=== PATIENT | male | born 1955 | race Caucasian/White ===

== ENCOUNTER 2016-10-05 12:38 | Emergency (ER) | payer MEDICARE, MEDICAID ==
--- NOTE | 2016-10-05 13:52 | EDM.PDOC ---
ED HPI NEURO - General Chief Complaint: Neuro Symptoms/Deficits Stated Complaint: DIZZY/SHOULDER PAIN Time Seen by Provider: 10/05/16 12:57 Source of Information: Reports: RN notes reviewed, Other ([facility] nurse) - History of Present Illness INITIAL COMMENTS - FREE TEXT/NARRATIVE: 60 year old male brought here with concern of paresthesias L hand earlier today and also question of some mild chest discomfort. Nurse states that he also has had some nasal benny. today, very occasional cough. He has had no focal weakness. communication ablitity is extremely limited. Does not appear to be in any distress at time of my exam. No cardiac or neuro hx. - Related Data Allergies/ADRs: Allergies Allergy/AdvReac Type Severity Reaction Status Date / Time cyclobenzaprine Allergy Other Verified 09/11/14 22:49 Home Meds: Home Meds Acetaminophen [Mapap] 650 mg PO TID 09/11/14 [History] Aspirin [Halfprin] 81 mg PO DAILY 09/11/14 [History] Benztropine [Cogentin] 0.5 mg PO QPM 09/11/14 [History] Doxazosin [Cardura] 8 mg PO DAILY 09/11/14 [History] Doxycycline Hyclate 20 mg PO DAILY 09/11/14 [History] LORazepam 0.5 mg PO QAM 09/11/14 [History] LORazepam 0.5 mg PO QPM 09/11/14 [History] Metoprolol Tartrate 25 mg PO BID 09/11/14 [History] Omeprazole 40 mg PO DAILY 09/11/14 [History] Ranitidine [Zantac] 150 mg PO QPM 09/11/14 [History] Vortioxetine Hydrobromide [Trintellix] 10 mg PO DAILY 09/11/14 [History] atorvaSTATin [Lipitor] 10 mg PO DAILY 09/11/14 [History] risperiDONE [Risperdal M-Tab] 0.5 mg PO QPM 09/11/14 [History] Mineral Oil/Petrolatum Oint [Lacri-Lube S.O.P Oint] 1 dose EYEBOTH DAILY [History] Polyvinyl Alcohol/Povidone/Pf [Refresh Classic Eye Drops] 1 drop EYEBOTH QID [History] Sennosides/Docusate Sodium [Senna Laxative Tablet] 2 tab PO DAILY PRN 10/05/16 [ History] Past Medical History HEENT History: Reports: Impaired vision, Other (see below) Other HEENT History: Glasses and dentures Cardiovascular History: Reports: High cholesterol, Hypertension Gastrointestinal History: Reports: GERD, Other (see below) Other Gastrointestinal History: "probability of lactose intolerance" Musculoskeletal History: Reports: Arthritis Neurological History: Reports: Cerebral palsy, Seizure, Other (see below) Other Neuro History: Patient is dx (from ) with moderate mental retardation Psychiatric History: Reports: Anxiety, Depression Social & Family History - Tobacco Use Smoking Status *Q: Never Smoker Second Hand Smoke Exposure: No - Caffeine Use Caffeine Use: Reports: None - Alcohol Use Days Per Week of Alcohol Use: 0 - Recreational Drug Use Recreational Drug Use: No - Living Situation & Occupation Living situation: Reports: assisted living ([facility] ED ROS GENERAL - Review of Systems Review Of Systems: See Below Constitutional: Reports: other (has felt dizzy today). Denies: fever, chills HEENT: Reports: Rhinitis. Denies: Throat pain, Throat swelling Respiratory: Reports: Cough (occasional). Denies: Shortness of Breath, Wheezing , Pleuritic Chest Pain Cardiovascular: Reports: Chest pain (mild, gone), Lightheadedness (today) GI/Abdominal: Denies: Abdominal pain, Diarrhea, Nausea, Vomiting Musculoskeletal: Denies: shoulder pain, arm pain Skin: Reports: no symptoms Neurological: Reports: Numbness (L hand, now gone) ED EXAM, NEURO - Physical Exam Exam: See Below General Appearance: alert, no apparent distress Eye Exam: bilateral eye: PERRL Throat/Mouth: Normal inspection, Normal oropharynx, Other (no facial drrop) Head Exam: atraumatic. No: facial swelling Neck: supple. No: lymphadenopathy (L), lymphadenopathy (R) Respiratory/Chest: no respiratory distress, lungs clear, normal breath sounds, no accessory muscle use Cardiovascular: regular rate, rhythm GI/Abdominal: soft, non tender Neurological: alert, no motor/sensory deficits, other (speech very limited, does answer yes and no questions, good upper and lower extrem strength, finger to nose also normal at this time. ) Extremities: normal inspection, normal range of motion Skin Exam: Warm, Dry, Normal color EKG INTERPRETATION EKG Date: 10/05/16 Rhythm: NSR Ross: normal P-wave: present QRS: normal ST-T: normal Course - Vital Signs Last Recorded V/S: Last Vital Signs Temp 98.4 F 10/05/16 12:48 Pulse 82 10/05/16 12:48 Resp 10 L 10/05/16 12:48 BP 102/67 10/05/16 12:48 Pulse Ox 95 10/05/16 12:48 - Orders/Labs/Meds Orders: Active Orders 24 hr Category Date Time Status EKG 12 Lead [EKG Documentation Completion] [RC] STAT Care 10/05/16 13:16 Active CBC WITH AUTO DIFF [HEME] Stat Lab 10/05/16 14:12 Results Labs: Laboratory Tests 10/05/16 10/05/16 Range/Units 14:12 14:12 WBC 9.75 H (4.23-9.07) K/mm3 RBC 4.96 (4.63-6.08) M/mm3 Hgb 14.4 (13.7-17.5) gm/L Hct 41.8 (40.1-51.0) % MCV 84.3 (79.0-92.2) fl MCH 29.0 (25.7-32.2) pg MCHC 34.4 (32.2-35.5) g/dl RDW Std Deviation 37.8 (35.1-43.9) fL Plt Count 202 (163-337) K/mm3 MPV 9.1 L (9.4-12.3) fl Neut % (Auto) 80.9 H (34.0-67.9) % Lymph % (Auto) 9.7 L (21.8-53.1) % Elliott % (Auto) 7.9 (5.3-12.2) % Eos % (Auto) 1.2 (0.8-7.0) Baso % (Auto) 0.1 (0.1-1.2) % Neut # (Auto) 7.88 H (1.78-5.38) K/mm3 Lymph # (Auto) 0.95 L (1.32-3.57) K/mm3 Elliott # (Auto) 0.77 (0.30-0.82) K/mm3 Eos # (Auto) 0.12 (0.04-0.54) K/mm3 Baso # (Auto) 0.01 (0.01-0.08) K/mm3 Sodium 141 (136-145) mEq/L Potassium 3.8 (3.5-5.1) mEq/L Chloride 105 (98-107) mEq/L Carbon Dioxide 27 (21-32) mEq/L Anion Gap 12.8 (5-15) BUN 17 (7-18) mg/dL Creatinine 1.2 (0.7-1.3) mg/dL Est Cr Clr Drug Dosing 63.59 mL/min Estimated GFR (MDRD) > 60 (>60) mL/min BUN/Creatinine Ratio 14.2 (14-18) Glucose 134 H (80-115) mg/dL Calcium 8.7 (8.5-10.1) mg/dL Total Bilirubin 0.5 (0.2-1.0) mg/dL AST 15 (15-37) U/L ALT 30 (16-63) U/L Alkaline Phosphatase 64 (46-116) U/L Troponin I < 0.017 (0.00-0.056) ng/mL Total Protein 6.6 (6.4-8.2) g/dl Albumin 3.9 (3.4-5.0) g/dl Globulin 2.7 gm/dL Albumin/Globulin Ratio 1.4 (1-2) - Re-Assessments/Exams Free Text/Narrative Re-Assessment/Exam: 10/05/16 14:50 trop., other labs have come back normal, EKG was normal, continues to have no neuro deficit while here in the ED, he is coming down with a URI, discharge instr. as documented. Departure - Departure Time of Disposition: 14:52 Disposition: Home, Self-Care 01 Condition: fair Clinical Impression: Upper respiratory infection Qualifiers: URI type: unspecified viral URI Qualified Code(s): J06.9 - Acute upper respiratory infection, unspecified; B97.89 - Other viral agents as the cause of diseases classified elsewhere Forms: ED Department Discharge Additional Instructions: encourage fluids, tylenol if needed for pain or fever, follow up clinic as needed, return to ED as needed. - My Orders Last 24 Hours: My Active Orders 10/05/16 13:16 EKG 12 Lead [EKG Documentation Completion] [RC] STAT 10/05/16 14:12 CBC WITH AUTO DIFF [HEME] Stat - Assessment/Plan Last 24 Hours: My Active Orders 10/05/16 13:16 EKG 12 Lead [EKG Documentation Completion] [RC] STAT 10/05/16 14:12 CBC WITH AUTO DIFF [HEME] Stat
[2016-10-05 15:20] VITALS: BP 106/70
== END 2016-10-05 15:05 | disposition home or self-care (01) ==
LOC: JD.ED 12:38
DX: J06.9 Acute upper respiratory infection, unspecified (principal); I10 Essential (primary) hypertension; E78.00 Pure hypercholesterolemia, unspecified; K21.9 Gastro-esophageal reflux disease without esophagitis; M19.90 Unspecified osteoarthritis, unspecified site; F41.8 Other specified anxiety disorders; Z79.899 Other long term (current) drug therapy; Z79.82 Long term (current) use of aspirin; Z88.8 Allergy status to other drugs, medicaments and biological substances
CPT/HCPCS: 36415; 80053; 84484; 85025; 87804; 93005; 99283; 99284-25

== ENCOUNTER 2021-03-07 12:20 | Day surgery (SDC) | payer MEDICARE, MEDICAID ==
[~2021-03-07 12:20] MED LIST: Lidocaine 1% PF 2 ML SDV INJECT SCH
[2021-03-07] MEDS: Polymyxin B/Trimethoprim 10 ML Bottle EYELF SCH ×4 (13:44→14:52)
[2021-03-07] MEDS: Brimonidine 0.2% Ophth Soln 5 ML Bottle EYELF SCH ×4 (13:47→14:52)
--- NOTE | 2021-03-07 13:48 | PCM.PREANE ---
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) Other: Reports: Depression, Anxiety - Physical Assessment NPO Status Date: 03/06/21 NPO Status Time: 20:00 Weight: 71.668 kg ASA Class: 3 Mental Status: Alert & Oriented x3 Airway Class: Mallampati = 2 Dentition: Reports: Normal Dentition Thyro-Mental Finger Breadths: 3 Mouth Opening Finger Breadths: 2 ROM/Head Extension: Full Lungs: Clear to Auscultation, Normal Respiratory Effort Cardiovascular: Regular Rate, Regular Rhythm - Allergies Allergies/Adverse Reactions: Allergies Allergy/AdvReac Type Severity Reaction Status Date / Time adhesive Allergy Other Verified 03/06/21 12:22 cyclobenzaprine Allergy Other Verified 03/06/21 12:22 - Blood Blood Available: No Product(s) Available: None - Anesthesia Plan Pre-Op Medication Ordered: None - Acknowledgements Anesthesia Type Planned: MAC Pt an Appropriate Candidate for the Planned Anesthesia: Yes Alternatives and Risks of Anesthesia Discussed w Pt/Guardian: Yes Additional Comments: phone consent for anesthesia obtained from guardian Kim PreAnesthesia Questionnaire HEENT History: Reports: Impaired Vision, Other (See Below) Other HEENT History: Glasses and dentures Cardiovascular History: Reports: High Cholesterol, Hypertension Gastrointestinal History: Reports: GERD, Other (See Below) Other Gastrointestinal History: "probability of lactose intolerance" Musculoskeletal History: Reports: Arthritis Neurological History: Reports: Cerebral Palsy, Seizure, Other (See Below) Other Neuro History: Patient is dx (from ) with moderate mental retardation Psychiatric History: Reports: Anxiety, Depression - HOME MEDS Home Medications: Home Meds Acetaminophen [Mapap] 650 mg PO TID 09/11/14 [History] Aspirin [Halfprin] 81 mg PO DAILY 09/11/14 [History] Benztropine [Cogentin] 0.5 mg PO QPM 09/11/14 [History] Doxazosin [Cardura] 8 mg PO DAILY 09/11/14 [History] Doxycycline Hyclate 20 mg PO DAILY 09/11/14 [History] LORazepam 0.5 mg PO QAM 09/11/14 [History] LORazepam 0.5 mg PO QPM 09/11/14 [History] Omeprazole 40 mg PO DAILY 09/11/14 [History] Vortioxetine [Trintellix] 10 mg PO DAILY 09/11/14 [History] atorvaSTATin [Lipitor] 10 mg PO DAILY 09/11/14 [History] risperiDONE [Risperdal M-Tab] 0.25 mg PO QPM 09/11/14 [History] Mineral Oil/Petrolatum Oint [Lacri-Lube S.O.P Oint] 1 dose EYEBOTH DAILY 10/05/16 [History] Polyvinyl Alcohol/Povidone/Pf [Refresh Classic Eye Drops] 1 drop EYEBOTH QID 0 10/05/16 [History] Sennosides/Docusate Sodium [Senna Laxative Tablet] 2 tab PO DAILY PRN 10/05/16 [History] Fluticasone Propionate [Flovent] 50 mcg NASBOTH DAILY 03/06/21 [History] Hypromellose [Systane Gel] 10 gm EYEBOTH DAILY 03/06/21 [History] Ibuprofen 200 mg .ROUTE ASDIRECTED PRN 03/06/21 [History] Lactobacillus Acidophilus [Acidophilus Probiotic] 1 cap PO DAILY 03/06/21 [History] Memantine HCl 5 mg PO DAILY 03/06/21 [History] Pantoprazole [ProTONIX] 40 mg PO DAILY 03/06/21 [History] buPROPion HCL [Bupropion Xl] 150 mg PO DAILY 03/06/21 [History] risperiDONE [Risperdal] 0.5 mg PO DAILY 03/06/21 [History] risperiDONE [Risperidone] 0.25 mg PO DAILY 03/06/21 [History] - CURRENT (IN HOUSE) MEDS Current Meds: Current Medications Brimonidine Tartrate (Brimonidine 0.2% Ophth Soln 5 Ml Bottle) 0 ml EYELF ASDIRECTED STEVE Stop: 03/07/21 18:00 Cefuroxime Sodium (Cefuroxime 10 Mg/Ml Syringe) 0 mg EYELF ASDIRECTED STEVE Stop: 03/07/21 18:00 Lidocaine HCl (Lidocaine 1% Pf 2 Ml Sdv) 0 ml INJECT ASDIRECTED STEVE Stop: 03/07/21 18:00 Phenylephrine HCl (Phenylephrine 2.5% Ophth Soln 2 Ml Bot) 0 ml EYELF ASDIRECTED STEVE Stop: 03/07/21 18:00 Pilocarpine HCl (Pilocarpine 4% Ophth Soln 15 Ml Bot) 0 ml EYELF ASDIRECTED STEVE Stop: 03/07/21 18:00 Polymyxin/Trimethoprim Sulfate (Polymyxin B/Trimethoprim 10 Ml Bottle) 0 ml E YELF ASDIRECTED STEVE Stop: 03/07/21 18:00 Last Admin: 03/07/21 13:44 Dose: 1 drop Documented by: Tetracaine HCl (Tetracaine Hcl/Pf 0.5% 4 Ml Bottle) 0 ml EYEBOTH ASDIRECTED STEVE Stop: 03/07/21 18:00 Tropicamide (Tropicamide 1% Ophth Soln 15 Ml Bottle) 0 ml EYELF ASDIRECTED STEVE Stop: 03/07/21 18:00
[2021-03-07] MEDS: Phenylephrine 2.5% Ophth Soln 2 ML Bot EYELF SCH ×5 (13:50→14:25)
[2021-03-07] MEDS: Tropicamide 1% Ophth Soln 15 ML Bottle EYELF SCH ×4 (13:52→14:09)
[2021-03-07] MEDS ORDERED: Midazolam 1 MG/ML 2 ML SDV ONE (14:11)
[2021-03-07] MEDS: Tetracaine HCl/PF 0.5% 4 ML Bottle EYEBOTH SCH ×4 (14:11→14:30)
[2021-03-07] MEDS ORDERED: Propofol 200 MG/20 ML SDV ONE (14:22)
[2021-03-07] MEDS: Cefuroxime 10 MG/ML SYRINGE EYELF SCH ×2 (14:30→14:52)
[2021-03-07] MEDS: Pilocarpine 4% Ophth Soln 15 ML Bot EYELF SCH ×2 (14:48→14:52)
--- NOTE | 2021-03-07 14:58 | PCM48HPAN ---
Post Anesthesia Note - EVALUATION WITHIN 48HRS OF ANESTHETIC Vital Signs in Normal Range: Yes Patient Participated in Evaluation: Yes Respiratory Function Stable: Yes Airway Patent: Yes Cardiovascular Function Stable: Yes Hydration Status Stable: Yes Pain Control Satisfactory: Yes Nausea and Vomiting Control Satisfactory: Yes Mental Status Recovered: Yes - COMMENTS/OBSERVATIONS Free Text/Narrative:: 132/82 97% 68 18 98.0
[2021-03-07 15:33] VITALS: PULSE 67
[2021-03-07 15:34] VITALS: BP 146/91
== END 2021-03-07 15:15 | disposition home or self-care (01) ==
LOC: JD.SDS 12:20
PROVIDERS: ATTEND Ophthalmology
DX: H25.812 Combined forms of age-related cataract, left eye (principal); H52.31 Anisometropia; I10 Essential (primary) hypertension; E78.00 Pure hypercholesterolemia, unspecified; M19.90 Unspecified osteoarthritis, unspecified site; F41.9 Anxiety disorder, unspecified; F32.9 Major depressive disorder, single episode, unspecified; Z96.1 Presence of intraocular lens
CPT/HCPCS: 66984; J0697; J2250; J2704; C1780

== ENCOUNTER 2023-07-03 09:40 | Emergency (ER) | payer MEDICARE, MEDICAID ==
[2023-07-03] MEDS ORDERED: LORazepam 2 MG/ML SDV IM ONE (10:30)
[2023-07-03] MEDS ORDERED: Haloperidol Lactate 5 MG/ML SDV IM ONE (10:30)
[2023-07-03 11:38] LABS: APPEARANCE,URINE CLEAR (Clear); BILIRUBIN,URINE NEGATIVE (Negative); COLOR,URINE YELLOW (Yellow); GLUCOSE,URINE NEGATIVE (Negative); KETONES,URINE 2+ (Negative); LEUKOCYTE ESTERASE,URINE NEGATIVE (Negative); NITRITE,URINE NEGATIVE (Negative); OCCULT BLOOD,URINE NEGATIVE (Negative); PROTEIN,URINE NEGATIVE (Negative); UROBILINOGEN,URINE 0.2 (0.2-1.0)
[2023-07-03 11:48] LABS: BASOPHILS PERCENT AUTO 0.6 % (0.0-1.0); EOSINOPHILS ABSOLUTE AUTO 0.1 K/mm3 (0.0-0.4); EOSINOPHILS PERCENT AUTO 1.9 % (0.0-6.0); HEMATOCRIT 44.5 % (42.0-52.0); HEMOGLOBIN 14.3 gm/dl (14.0-18.0); IMMATURE GRAN ABSOLUTE AUTO 0.02 K/mm3 (0.00-0.05); IMMATURE GRAN PERCENT AUTO 0.3 % (0.0-0.4); LYMPHOCYTES ABSOLUTE AUTO 1.3 K/mm3 (1.0-4.8); MEAN CORPUSCULAR HEMOGLOBIN 29.4 pg (28.0-32.0); MEAN CORPUSCULAR HGB CONC 32.1 g/dl (32.0-36.0); MEAN CORPUSCULAR VOLUME 91.6 fl (83.0-99.0); MONOCYTES ABSOLUTE AUTO 0.5 K/mm3 (0.0-0.8); MONOCYTES PERCENT AUTO 7.1 % (0.0-8.0); NEUTROPHILS ABSOLUTE AUTO 5.2 K/mm3 (1.8-7.7); NEUTROPHILS PERCENT AUTO 72.1 % (41.0-71.0); PLATELET COUNT,PLT 235 K/mm3 (150-400); RED BLOOD CELL COUNT 4.86 M/mm3 (4.52-5.90); WHITE BLOOD CELL COUNT,WBC 7.23 K/mm3 (3.9-11.3)
[2023-07-03 12:10] LABS: A/G RATIO 1.2 (1-2); ANION GAP 12.7 (5-15); BILIRUBIN TOTAL 0.5 mg/dL (0.2-1.0); BUN/CREATININE RATIO 20.8 (14-18); CALCIUM 9.3 mg/dL (8.5-10.1); CREATININE 1.3 mg/dL (0.7-1.3); EST CRCL DRUG DOSING (CG) 51.26 mL/min; POTASSIUM,K 3.7 mEq/L (3.5-5.1); PROTEIN TOTAL,TP 7.3 g/dl (6.4-8.2)
[2023-07-03 12:29] LABS: CORONAVIRUS COVID-19 NAA NEGATIVE (NEGATIVE); INFLUENZA A NAA NEGATIVE (NEGATIVE)
[2023-07-03 14:14] VITALS: BP 130/82; PULSE 80
== END 2023-07-03 14:10 | disposition home or self-care (01) ==
LOC: JD.ED 09:40
DX: F29 Unspecified psychosis not due to a substance or known physiological condition (principal); I10 Essential (primary) hypertension; E78.00 Pure hypercholesterolemia, unspecified; K21.9 Gastro-esophageal reflux disease without esophagitis; Z79.82 Long term (current) use of aspirin; Z79.899 Other long term (current) drug therapy; Z88.8 Allergy status to other drugs, medicaments and biological substances; Z91.048 Other nonmedicinal substance allergy status; Z88.6 Allergy status to analgesic agent
CPT/HCPCS: 0240U; 36415; 80053; 81003; 85025; 96372; 99284; C1758; J1630; J2060

== ENCOUNTER 2023-07-31 19:40 | Emergency (ER) | payer MEDICARE, MEDICAID ==
[2023-07-31] MEDS ORDERED: Azithromycin 200 MG/5 ML Susp 30 ML Bottle PO ONE ×2 (21:16→21:30)
[2023-07-31] MEDS ORDERED: Dextrose 5%-0.9% NaCl 1,000 ML IV SCH (22:00)
[2023-07-31] MEDS ORDERED: Dextrose 5%-0.9% NaCl 500 ML IV SCH (22:15)
[2023-07-31 22:50] VITALS: BP 156/91; PULSE 97
== END 2023-07-31 22:50 | disposition home or self-care (01) ==
LOC: JD.ED 19:40
DX: U07.1 COVID-19 (principal); J18.9 Pneumonia, unspecified organism; I10 Essential (primary) hypertension; K21.9 Gastro-esophageal reflux disease without esophagitis; E78.00 Pure hypercholesterolemia, unspecified; Z79.899 Other long term (current) drug therapy; Z79.82 Long term (current) use of aspirin; Z91.048 Other nonmedicinal substance allergy status; Z88.1 Allergy status to other antibiotic agents
CPT/HCPCS: 71045; 96360; 99284; A9270; J7042

== ENCOUNTER 2023-08-08 02:06 | Emergency (ER) | payer MEDICARE, MEDICAID ==
[2023-08-08 02:33] VITALS: PULSE 69
[2023-08-08] MEDS ORDERED: Sodium Chloride 0.9% 10 ML Syringe FLUSH PRN (02:52)
[2023-08-08 03:22] LABS: BASOPHILS PERCENT AUTO 0.1 % (0.0-1.0); EOSINOPHILS ABSOLUTE AUTO 0.2 K/mm3 (0.0-0.4); EOSINOPHILS PERCENT AUTO 1.4 % (0.0-6.0); HEMATOCRIT 42.3 % (42.0-52.0); HEMOGLOBIN 13.8 gm/dl (14.0-18.0); IMMATURE GRAN ABSOLUTE AUTO 0.04 K/mm3 (0.00-0.05); IMMATURE GRAN PERCENT AUTO 0.3 % (0.0-0.4); LYMPHOCYTES PERCENT AUTO 7.6 % (24.0-44.0); MEAN CORPUSCULAR HEMOGLOBIN 29.8 pg (28.0-32.0); MEAN CORPUSCULAR HGB CONC 32.6 g/dl (32.0-36.0); MEAN CORPUSCULAR VOLUME 91.4 fl (83.0-99.0); MONOCYTES ABSOLUTE AUTO 0.9 K/mm3 (0.0-0.8); MONOCYTES PERCENT AUTO 6.7 % (0.0-8.0); NEUTROPHILS ABSOLUTE AUTO 11.2 K/mm3 (1.8-7.7); NEUTROPHILS PERCENT AUTO 83.9 % (41.0-71.0); PLATELET COUNT,PLT 250 K/mm3 (150-400); RED BLOOD CELL COUNT 4.63 M/mm3 (4.52-5.90); WHITE BLOOD CELL COUNT,WBC 13.41 K/mm3 (3.9-11.3)
[2023-08-08 03:48] LABS: A/G RATIO 1.1 (1-2); ALBUMIN 3.6 g/dl (3.4-5.0); ANION GAP 10.9 (5-15); BILIRUBIN TOTAL 0.5 mg/dL (0.2-1.0); BUN/CREATININE RATIO 21.7 (14-18); CALCIUM 9.4 mg/dL (8.5-10.1); CREATININE 1.2 mg/dL (0.7-1.3); EST CRCL DRUG DOSING (CG) 53.3 mL/min; MAGNESIUM 2.4 mg/dL (1.8-2.4); POTASSIUM,K 3.9 mEq/L (3.5-5.1); PROTEIN TOTAL,TP 6.8 g/dl (6.4-8.2)
[2023-08-08 03:56] VITALS: BP 143/84
[2023-08-08 04:21] LABS: CORONAVIRUS COVID-19 NAA NEGATIVE (NEGATIVE); INFLUENZA A NAA NEGATIVE (NEGATIVE); RESPIRATORY SYNCYTIAL VIR NAA NEGATIVE (NEGATIVE)
[2023-08-08] MEDS ORDERED: cefTRIAXone 1 GM in Sodium Chloride 0.9% 100 ML IV ONE (04:24)
[2023-08-08] MEDS ORDERED: cefTRIAXone 1 GM, Lidocaine 1% 2.1 ML IM ONE ×2 (04:36)
[2023-08-08 04:39] LABS: APPEARANCE,URINE CLEAR (Clear); BILIRUBIN,URINE NEGATIVE (Negative); COLOR,URINE YELLOW (Yellow); GLUCOSE,URINE NEGATIVE (Negative); KETONES,URINE TRACE (Negative); LEUKOCYTE ESTERASE,URINE NEGATIVE (Negative); NITRITE,URINE NEGATIVE (Negative); OCCULT BLOOD,URINE NEGATIVE (Negative); PH,URINE 5.5 (5.0-8.0); PROTEIN,URINE NEGATIVE (Negative); UROBILINOGEN,URINE 0.2 (0.2-1.0)
[2023-08-08 05:09] LABS: BACTERIA,URINE FEW /hpf (FEW); EPITHELIAL CELLS,URINE NOT SEEN /hpf (0-5); MUCUS,URINE NOT SEEN /hpf (FEW); RBC,URINE 0-5 /hpf (0-5); WBC,URINE 0-5 /hpf (0-5)
== END 2023-08-08 05:45 | disposition home or self-care (01) ==
LOC: JD.ED 02:06
DX: R09.02 Hypoxemia (principal); I10 Essential (primary) hypertension; E78.00 Pure hypercholesterolemia, unspecified; Z91.048 Other nonmedicinal substance allergy status; Z88.8 Allergy status to other drugs, medicaments and biological substances; Z79.899 Other long term (current) drug therapy; Z79.82 Long term (current) use of aspirin; Z86.16 Personal history of COVID-19
CPT/HCPCS: 0241U; 36415; 71045; 80053; 81001; 83605; 83735; 84484; 85025; 87040; 93005; 96372; 99285; C1758; J0696; 93010; 99284; J3490

== ENCOUNTER 2023-10-09 20:52 | Emergency (ER) | payer MEDICARE, MEDICAID ==
[2023-10-09] MEDS ORDERED: Sodium Chloride 0.9% 10 ML Syringe FLUSH PRN (21:33)
[2023-10-09] MEDS: Sodium Chloride 0.9% 1,000 ML IV ONE ×2 (21:42→22:51)
[2023-10-09 21:51] LABS: A/G RATIO 0.7 (1-2); ALBUMIN 2.3 g/dl (3.4-5.0); ANION GAP 9.1 (5-15); BILIRUBIN TOTAL 0.3 mg/dL (0.2-1.0); BUN/CREATININE RATIO 29.2 (14-18); C-REACTIVE PROTEIN 10.96 mg/dL (<0.30); CALCIUM 8.1 mg/dL (8.5-10.1); CREATININE 1.3 mg/dL (0.7-1.3); EST CRCL DRUG DOSING (CG) 50.85 mL/min; POTASSIUM,K 5.1 mEq/L (3.5-5.1); PROTEIN TOTAL,TP 5.6 g/dl (6.4-8.2)
[2023-10-09 21:53] LABS: HEMATOCRIT 25.9 % (42.0-52.0); HEMOGLOBIN 8.5 gm/dl (14.0-18.0); LACTIC ACID 1.6 mmol/L (0.4-2.0); MEAN CORPUSCULAR HEMOGLOBIN 29.9 pg (28.0-32.0); MEAN CORPUSCULAR HGB CONC 32.8 g/dl (32.0-36.0); MEAN CORPUSCULAR VOLUME 91.2 fl (83.0-99.0); MEAN PLATELET VOLUME 8.8 fl (9.4-12.4); PLATELET COUNT,PLT 182 K/mm3 (150-400); RED BLOOD CELL COUNT 2.84 M/mm3 (4.52-5.90); WHITE BLOOD CELL COUNT,WBC 2.52 K/mm3 (3.9-11.3)
[2023-10-09 21:56] LABS: APPEARANCE,URINE CLEAR (Clear); BILIRUBIN,URINE NEGATIVE (Negative); COLOR,URINE YELLOW (Yellow); GLUCOSE,URINE TRACE (Negative); KETONES,URINE NEGATIVE (Negative); LEUKOCYTE ESTERASE,URINE 1+ (Negative); NITRITE,URINE NEGATIVE (Negative); OCCULT BLOOD,URINE 1+ (Negative); PROTEIN,URINE 2+ (Negative); UROBILINOGEN,URINE 0.2 (0.2-1.0)
[2023-10-09 21:57] LABS: INR 1.01; PROTHROMBIN TIME 10.8 SECONDS (9.7-12.0)
[2023-10-09 22:12] LABS: RBC,URINE 20-30 /hpf (0-5); SQUAMOUS EPITHELIAL CELLS,UR 0-5 /hpf (0-5); WBC,URINE 75-100 /hpf (0-5)
[2023-10-09 22:13] LABS: BACTERIA,URINE FEW /hpf (FEW); MUCUS,URINE FEW /hpf (FEW)
[2023-10-09 22:20] LABS: BAND PERCENT MAN 2 % (0-10); BASOPHILS PERCENT MAN 0 (0.2-1.2); EOSINOPHILS PERCENT MAN 1 % (0.8-7.0); LYMPHOCYTES % ATYPICAL MANUAL 1 %; LYMPHOCYTES PERCENT MAN 5 % (20-40); METAMYELOCYTE PERCENT MAN 2; MONOCYTES PERCENT MAN 2 % (2-10)
[2023-10-09 22:22] LABS: OVALOCYTES 2+ MODERATE; POIKILOCYTOSIS 2+ MODERATE
[2023-10-09 22:23] LABS: PLATELET COUNT ESTIMATE ADEQUATE; POLYCHROMASIA FEW; TOXIC GRANULATION FEW
[2023-10-09] MEDS: cefTRIAXone 1 GM in Sodium Chloride 0.9% 100 ML IV ONE (23:43)
[2023-10-10 00:26] LABS: CORONAVIRUS COVID-19 NAA NEGATIVE (NEGATIVE); INFLUENZA A NAA NEGATIVE (NEGATIVE); RESPIRATORY SYNCYTIAL VIR NAA NEGATIVE (NEGATIVE)
[2023-10-10 00:28] VITALS: BP 101/66; PULSE 69
== END 2023-10-10 00:28 | disposition home or self-care (01) ==
LOC: JD.ED 20:52
DX: N30.00 Acute cystitis without hematuria (principal); D64.89 Other specified anemias; D70.9 Neutropenia, unspecified; I10 Essential (primary) hypertension; K21.9 Gastro-esophageal reflux disease without esophagitis; Z91.048 Other nonmedicinal substance allergy status; Z88.8 Allergy status to other drugs, medicaments and biological substances; Z79.82 Long term (current) use of aspirin; Z79.899 Other long term (current) drug therapy; Z86.16 Personal history of COVID-19
CPT/HCPCS: 0241U; 36415; 71045; 80053; 81001; 83605; 85007; 85027; 85610; 86140; 87040; 87086; 87154; 96361; 96365; 99283; C1758; J0696; J3490; J7030; 87077; 87088; 87186

== ENCOUNTER 2023-10-11 07:52 | Inpatient (IN) | payer MEDICARE, MEDICAID ==
[2023-10-11 09:37] LABS: HEMATOCRIT 23.9 % (42.0-52.0); HEMOGLOBIN 7.7 gm/dl (14.0-18.0); MEAN CORPUSCULAR HEMOGLOBIN 29.2 pg (28.0-32.0); MEAN CORPUSCULAR HGB CONC 32.2 g/dl (32.0-36.0); MEAN CORPUSCULAR VOLUME 90.5 fl (83.0-99.0); MEAN PLATELET VOLUME 8.9 fl (9.4-12.4); PLATELET COUNT,PLT 175 K/mm3 (150-400); RED BLOOD CELL COUNT 2.64 M/mm3 (4.52-5.90)
[2023-10-11 09:40] LABS: WHITE BLOOD CELL COUNT,WBC 2.21 K/mm3 (3.9-11.3)
[2023-10-11 09:49] LABS: INR 0.97; PROTHROMBIN TIME 10.4 SECONDS (9.7-12.0)
[2023-10-11 09:51] LABS: PTT,PARTIAL THROMBOPLSTIN TIME 25.4 SECONDS (21.7-31.4)
[2023-10-11 09:57] LABS: LACTIC ACID 1.9 mmol/L (0.4-2.0)
[2023-10-11 10:01] LABS: C-REACTIVE PROTEIN 7.6 mg/dL (<0.30); MAGNESIUM 2.1 mg/dL (1.8-2.4)
[2023-10-11] MEDS: Dextrose 5%-0.9% NaCl 1,000 ML IV SCH (10:12)
[2023-10-11] MEDS: cefTRIAXone 2 GM in Sodium Chloride 0.9% 100 ML IV ONE (10:12)
[2023-10-11 10:29] LABS: BAND PERCENT MAN 26 % (0-10); BASOPHILS PERCENT MAN 0 (0.2-1.2); EOSINOPHILS PERCENT MAN 0 % (0.8-7.0); LYMPHOCYTES % ATYPICAL MANUAL 0 %; LYMPHOCYTES PERCENT MAN 4 % (20-40); MONOCYTES PERCENT MAN 9 % (2-10)
[2023-10-11 10:31] LABS: HOWELL JOLLY BODIES RARE
[2023-10-11 10:32] LABS: PLATELET COUNT ESTIMATE ADEQUATE; TOXIC GRANULATION 1+ SLIGHT
[2023-10-11 10:35] LABS: APPEARANCE,URINE SLT CLOUDY (Clear); BILIRUBIN,URINE NEGATIVE (Negative); COLOR,URINE YELLOW (Yellow); GLUCOSE,URINE NEGATIVE (Negative); KETONES,URINE NEGATIVE (Negative); LEUKOCYTE ESTERASE,URINE 1+ (Negative); NITRITE,URINE NEGATIVE (Negative); OCCULT BLOOD,URINE TRACE-INTACT (Negative); PROTEIN,URINE 1+ (Negative); UROBILINOGEN,URINE 0.2 (0.2-1.0)
[2023-10-11 10:37] LABS: A/G RATIO 0.6 (1-2); ALANINE AMINOTRANSFERASE,ALT 21 U/L (16-63); ALKALINE PHOSPHATASE 73 U/L (46-116); ASPARTATE AMNIOTRANSFERASE,AST 21 U/L (15-37); BILIRUBIN TOTAL 0.3 mg/dL (0.2-1.0); BLOOD UREA NITROGEN,BUN 26 mg/dL (7-18); BUN/CREATININE RATIO 23.6 (14-18); CALCIUM 8.3 mg/dL (8.5-10.1); CARBON DIOXIDE,CO2 28 mEq/L (21-32); CHLORIDE,CL 99 mEq/L (98-107); CREATININE 1.1 mg/dL (0.7-1.3); ESTIMATED GFR 73 mL/min (>60); GLUCOSE RANDOM 120 mg/dL (70-99); PROTEIN TOTAL,TP 5.4 g/dl (6.4-8.2); SODIUM,NA 134 mEq/L (136-145)
[2023-10-11] MEDS ORDERED: Sodium Chloride 0.9% 1,000 ML IV SCH (11:15)
[2023-10-11 11:25] LABS: EPITHELIAL CELLS,URINE NOT SEEN /hpf (0-5); WBC CLUMPS,URINE RARE /hpf (NOT SEEN); WBC,URINE 40-50 /hpf (0-5)
[2023-10-11 11:26] LABS: BACTERIA,URINE FEW /hpf (FEW); MUCUS,URINE FEW /hpf (FEW)
[2023-10-11] MEDS: VANCOmycin 1.5 GM/300 ML 1.5 GM in Premix Bag 1 BAG IV ONE (14:02)
[2023-10-11] MEDS: diphenhydrAMINE 50 MG/ML SDV IVPUSH ONE (15:14)
[2023-10-11] MEDS: Metoclopramide 10 MG/2 ML SDV IVPUSH ONE (15:14)
[2023-10-11] MEDS ORDERED: Carboxymethylcellulose Sodium 1% Ophth Gel 15 ML Bottle EYEBOTH PRN (15:48)
[2023-10-11] MEDS ORDERED: Prochlorperazine 5 MG Tab PO PRN (15:48)
[2023-10-11] MEDS ORDERED: Sennosides 8.6 MG Tab PO PRN (15:48)
[2023-10-11] MEDS ORDERED: Carbamide Peroxide 6.5% Otic Soln 15 ML Bottle EARLF PRN (15:48)
[2023-10-11] MEDS ORDERED: Aluminum Hydroxide/Magnesium Hydroxide/Simethicone Susp 30 ML Cup PO PRN (15:48)
[2023-10-11] MEDS ORDERED: Ondansetron 4 MG Tab.DIS PO PRN (15:48)
[2023-10-11] MEDS: Acetaminophen/HYDROcodone 325-10 MG Tab GTUBE PRN (16:00)
[2023-10-11] MEDS ORDERED: Dexamethasone 4 MG Tab PO SCH (16:00)
[2023-10-11] MEDS: Albuterol 0.083% 2.5 MG/3 ML Neb Soln INH SCH ×2 (17:38→20:57)
[2023-10-11] MEDS ORDERED: Hydrocortisone 1% Crm 30 GM Tube TOP PRN (18:40)
[2023-10-11] MEDS: Melatonin 3 MG Tab PO SCH (21:32)
[2023-10-11] MEDS: QUEtiapine 25 MG Tab PO SCH (21:32)
[2023-10-11] MEDS: Carboxymethylcellulose Sodium 1% Ophth Gel 15 ML Bottle EYEBOTH SCH (21:33)
[2023-10-11] MEDS: Acetaminophen Soln 650 MG/20.3 ML UD Cup GTUBE SCH (22:13)
[2023-10-12 06:16] LABS: BASOPHILS PERCENT AUTO 0.6 % (0.0-1.0); EOSINOPHILS ABSOLUTE AUTO 0.1 K/mm3 (0.0-0.4); EOSINOPHILS PERCENT AUTO 2.8 % (0.0-6.0); HEMATOCRIT 24.4 % (42.0-52.0); HEMOGLOBIN 7.9 gm/dl (14.0-18.0); IMMATURE GRAN ABSOLUTE AUTO 0.02 K/mm3 (0.00-0.05); IMMATURE GRAN PERCENT AUTO 1.1 % (0.0-0.4); LYMPHOCYTES ABSOLUTE AUTO 0.1 K/mm3 (1.0-4.8); LYMPHOCYTES PERCENT AUTO 3.9 % (24.0-44.0); MEAN CORPUSCULAR HEMOGLOBIN 29.4 pg (28.0-32.0); MEAN CORPUSCULAR HGB CONC 32.4 g/dl (32.0-36.0); MEAN CORPUSCULAR VOLUME 90.7 fl (83.0-99.0); MEAN PLATELET VOLUME 9.2 fl (9.4-12.4); MONOCYTES ABSOLUTE AUTO 0.2 K/mm3 (0.0-0.8); MONOCYTES PERCENT AUTO 13.5 % (0.0-8.0); NEUTROPHILS ABSOLUTE AUTO 1.4 K/mm3 (1.8-7.7); NEUTROPHILS PERCENT AUTO 78.1 % (41.0-71.0); PLATELET COUNT,PLT 154 K/mm3 (150-400); RED BLOOD CELL COUNT 2.69 M/mm3 (4.52-5.90)
[2023-10-12 06:29] LABS: WHITE BLOOD CELL COUNT,WBC 1.78 K/mm3 (3.9-11.3)
[2023-10-12 06:55] LABS: A/G RATIO 0.6 (1-2); ALBUMIN 1.8 g/dl (3.4-5.0); ANION GAP 11.9 (5-15); BILIRUBIN TOTAL 0.2 mg/dL (0.2-1.0); BUN/CREATININE RATIO 22.5 (14-18); CREATININE 0.8 mg/dL (0.7-1.3); EST CRCL DRUG DOSING (CG) 81.59 mL/min; MAGNESIUM 1.8 mg/dL (1.8-2.4); PHOSPHORUS 2.6 mg/dL (2.6-4.7); POTASSIUM,K 4.9 mEq/L (3.5-5.1)
[2023-10-12] MEDS: atorvaSTATin 40 MG Tab GTUBE SCH (08:04)
[2023-10-12] MEDS: Cyanocobalamin (Vitamin B12) 1,000 MCG Tab PO SCH (08:04)
[2023-10-12] MEDS: Aspirin 81 MG Tab.EC PO SCH (08:04)
[2023-10-12] MEDS: Doxazosin 4 MG Tab GTUBE SCH (08:05)
[2023-10-12] MEDS: Tobramycin 0.3% Ophth Drops 5 ML Bottle EYERT SCH (08:05)
[2023-10-12] MEDS: Citalopram 20 MG Tab PO SCH (08:05)
[2023-10-12] MEDS: QUEtiapine 25 MG Tab PO SCH (08:05)
[2023-10-12] MEDS: Fluticasone NASAL Spray 16 GM Bottle NASBOTH SCH (08:06)
[2023-10-12] MEDS ORDERED: VANCOmycin 1.25 GM/250 ML 1.25 GM in Premix Bag 1 BAG IV SCH ×2 (09:00→14:00)
[2023-10-12] MEDS ORDERED: Non-Formulary Medication 1 Each (Propylene Glycol/Peg 400 [Systane Liquid Gel Eye Drops] 1 OP SCH (09:00)
[2023-10-12] MEDS ORDERED: GUAIFENESIN PO PRN (09:00)
[2023-10-12] MEDS ORDERED: PSEUDOEPHEDRINE PO PRN (09:00)
[2023-10-12] MEDS ORDERED: CHLOPHEDIANOL PO PRN (09:00)
[2023-10-12] MEDS ORDERED: MOUTHWASH PO SCH (09:00)
[2023-10-12] MEDS: Ampicillin 2 GM in Sodium Chloride 0.9% 100 ML IV SCH (09:20)
[2023-10-12 11:44] LABS: SLIDE REVIEW ABNORMAL SMEAR
[2023-10-12] MEDS ORDERED: Ondansetron 4 MG/2 ML SDV IV PRN (12:57)
[2023-10-12] MEDS ORDERED: Albuterol/Ipratropium 3.0-0.5 MG/3 ML Neb Soln NEB PRN (12:57)
[2023-10-12] MEDS: LORazepam 0.5 MG Tab PO PRN (13:04)
[2023-10-12] MEDS: LORazepam 2 MG/ML SDV IVPUSH ONE (14:00)
[2023-10-12] MEDS ORDERED: Sennosides 8.6 MG Tab GTUBE SCH (15:00)
[2023-10-13 05:05] LABS: BASOPHILS PERCENT AUTO 0.4 % (0.0-1.0); EOSINOPHILS ABSOLUTE AUTO 0.1 K/mm3 (0.0-0.4); EOSINOPHILS PERCENT AUTO 2.2 % (0.0-6.0); HEMATOCRIT 22.6 % (42.0-52.0); IMMATURE GRAN ABSOLUTE AUTO 0.03 K/mm3 (0.00-0.05); IMMATURE GRAN PERCENT AUTO 1.3 % (0.0-0.4); LYMPHOCYTES ABSOLUTE AUTO 0.1 K/mm3 (1.0-4.8); LYMPHOCYTES PERCENT AUTO 5.3 % (24.0-44.0); MEAN CORPUSCULAR HEMOGLOBIN 28.7 pg (28.0-32.0); MEAN CORPUSCULAR HGB CONC 32.7 g/dl (32.0-36.0); MEAN CORPUSCULAR VOLUME 87.6 fl (83.0-99.0); MEAN PLATELET VOLUME 9.5 fl (9.4-12.4); MONOCYTES ABSOLUTE AUTO 0.3 K/mm3 (0.0-0.8); MONOCYTES PERCENT AUTO 15.1 % (0.0-8.0); NEUTROPHILS ABSOLUTE AUTO 1.7 K/mm3 (1.8-7.7); NEUTROPHILS PERCENT AUTO 75.7 % (41.0-71.0); NRBC ABSOLUTE 0.02 (0.00-0.02); NRBC PERCENT 0.9 % (0.0-0.2); PLATELET COUNT,PLT 157 K/mm3 (150-400); RED BLOOD CELL COUNT 2.58 M/mm3 (4.52-5.90)
[2023-10-13 05:28] LABS: ANION GAP 11.3 (5-15); BUN/CREATININE RATIO 14.4 (14-18); C-REACTIVE PROTEIN 1.87 mg/dL (<0.30); CALCIUM 8.4 mg/dL (8.5-10.1); CREATININE 0.9 mg/dL (0.7-1.3); EST CRCL DRUG DOSING (CG) 72.52 mL/min; MAGNESIUM 1.9 mg/dL (1.8-2.4); POTASSIUM,K 4.3 mEq/L (3.5-5.1)
[2023-10-13 06:27] LABS: HEMOGLOBIN 7.4 gm/dl (14.0-18.0); WHITE BLOOD CELL COUNT,WBC 2.25 K/mm3 (3.9-11.3)
[2023-10-13 06:29] LABS: SLIDE REVIEW ABNORMAL SMEAR
[2023-10-13] MEDS: Loperamide 2 MG Cap GTUBE ONE (13:23)
[2023-10-13] MEDS: LORazepam 0.5 MG Tab PO SCH (15:12)
[2023-10-14 05:59] LABS: BASOPHILS PERCENT AUTO 0.4 % (0.0-1.0); EOSINOPHILS ABSOLUTE AUTO 0.1 K/mm3 (0.0-0.4); HEMATOCRIT 23.7 % (42.0-52.0); HEMOGLOBIN 7.6 gm/dl (14.0-18.0); IMMATURE GRAN ABSOLUTE AUTO 0.03 K/mm3 (0.00-0.05); IMMATURE GRAN PERCENT AUTO 1.2 % (0.0-0.4); LYMPHOCYTES ABSOLUTE AUTO 0.1 K/mm3 (1.0-4.8); LYMPHOCYTES PERCENT AUTO 4.8 % (24.0-44.0); MEAN CORPUSCULAR HGB CONC 32.1 g/dl (32.0-36.0); MEAN CORPUSCULAR VOLUME 90.5 fl (83.0-99.0); MEAN PLATELET VOLUME 8.8 fl (9.4-12.4); MONOCYTES ABSOLUTE AUTO 0.4 K/mm3 (0.0-0.8); MONOCYTES PERCENT AUTO 16.5 % (0.0-8.0); NEUTROPHILS ABSOLUTE AUTO 1.9 K/mm3 (1.8-7.7); NEUTROPHILS PERCENT AUTO 75.1 % (41.0-71.0); PLATELET COUNT,PLT 195 K/mm3 (150-400); RED BLOOD CELL COUNT 2.62 M/mm3 (4.52-5.90)
[2023-10-14 06:00] LABS: ANION GAP 11.3 (5-15); BUN/CREATININE RATIO 18.9 (14-18); C-REACTIVE PROTEIN 0.84 mg/dL (<0.30); CALCIUM 8.5 mg/dL (8.5-10.1); CREATININE 0.9 mg/dL (0.7-1.3); EST CRCL DRUG DOSING (CG) 72.52 mL/min; POTASSIUM,K 4.3 mEq/L (3.5-5.1)
[2023-10-14 06:16] LABS: WHITE BLOOD CELL COUNT,WBC 2.49 K/mm3 (3.9-11.3)
[2023-10-15 06:23] LABS: BASOPHILS PERCENT AUTO 0.4 % (0.0-1.0); EOSINOPHILS ABSOLUTE AUTO 0.1 K/mm3 (0.0-0.4); EOSINOPHILS PERCENT AUTO 2.4 % (0.0-6.0); HEMATOCRIT 22.7 % (42.0-52.0); IMMATURE GRAN ABSOLUTE AUTO 0.03 K/mm3 (0.00-0.05); IMMATURE GRAN PERCENT AUTO 1.2 % (0.0-0.4); LYMPHOCYTES ABSOLUTE AUTO 0.1 K/mm3 (1.0-4.8); LYMPHOCYTES PERCENT AUTO 4.8 % (24.0-44.0); MEAN CORPUSCULAR HEMOGLOBIN 28.8 pg (28.0-32.0); MEAN CORPUSCULAR HGB CONC 31.7 g/dl (32.0-36.0); MEAN CORPUSCULAR VOLUME 90.8 fl (83.0-99.0); MEAN PLATELET VOLUME 9.1 fl (9.4-12.4); MONOCYTES ABSOLUTE AUTO 0.5 K/mm3 (0.0-0.8); MONOCYTES PERCENT AUTO 18.9 % (0.0-8.0); NEUTROPHILS ABSOLUTE AUTO 1.8 K/mm3 (1.8-7.7); NEUTROPHILS PERCENT AUTO 72.3 % (41.0-71.0); NRBC ABSOLUTE 0.02 (0.00-0.02); NRBC PERCENT 0.8 % (0.0-0.2); PLATELET COUNT,PLT 195 K/mm3 (150-400)
[2023-10-15 06:35] LABS: HEMOGLOBIN 7.2 gm/dl (14.0-18.0); WHITE BLOOD CELL COUNT,WBC 2.49 K/mm3 (3.9-11.3)
[2023-10-15 06:40] LABS: ANION GAP 11.3 (5-15); BUN/CREATININE RATIO 16.7 (14-18); C-REACTIVE PROTEIN 0.41 mg/dL (<0.30); CALCIUM 8.1 mg/dL (8.5-10.1); CREATININE 0.9 mg/dL (0.7-1.3); EST CRCL DRUG DOSING (CG) 68.85 mL/min; MAGNESIUM 1.9 mg/dL (1.8-2.4); POTASSIUM,K 4.3 mEq/L (3.5-5.1)
[2023-10-15 10:41] LABS: HEMATOCRIT 24.8 % (42.0-52.0)
[2023-10-15 12:44] VITALS: BP 125/99; PULSE 93
== END 2023-10-15 13:57 | disposition other institution (70) | DRG 871 ==
LOC: JD.ED 07:52 → JD.MS 12:26
PROVIDERS: ADMIT Internal Medicine; ATTEND Internal Medicine
DX: R78.81 Bacteremia (principal); G80.0 Spastic quadriplegic cerebral palsy; F84.0 Autistic disorder; A41.9 Sepsis, unspecified organism; D72.818 Other decreased white blood cell count; N39.0 Urinary tract infection, site not specified; C15.9 Malignant neoplasm of esophagus, unspecified; D84.821 Immunodeficiency due to drugs; I10 Essential (primary) hypertension; E78.00 Pure hypercholesterolemia, unspecified; Z66 Do not resuscitate; K21.9 Gastro-esophageal reflux disease without esophagitis; K59.09 Other constipation; Z91.048 Other nonmedicinal substance allergy status; Z88.1 Allergy status to other antibiotic agents; F41.9 Anxiety disorder, unspecified; M19.90 Unspecified osteoarthritis, unspecified site; K52.9 Noninfective gastroenteritis and colitis, unspecified; D64.81 Anemia due to antineoplastic chemotherapy; T45.1X5A Adverse effect of antineoplastic and immunosuppressive drugs, initial encounter; D70.1 Agranulocytosis secondary to cancer chemotherapy; B95.2 Enterococcus as the cause of diseases classified elsewhere; Z86.16 Personal history of COVID-19; Z88.8 Allergy status to other drugs, medicaments and biological substances; Z79.82 Long term (current) use of aspirin; Z79.899 Other long term (current) drug therapy
CPT/HCPCS: 36415; 71045; 80053; 81001; 83605; 83735; 83880; 85007; 85027; 85610; 85730; 86140; 87040 ×2; 87086; 96361; 96365; 99285; C1758; J0696; J3490; J7042; 80048; 80202; 84100; 85014; 85018; 85025; 86850; 86900; 86901; 87493; 87641; 93005; 93010; 93307; 94640; 94760; 94761; A9270-GY; J0290; J2060; J3370; J7620-GY

== ENCOUNTER 2023-10-23 22:17 | Emergency (ER) | payer MEDICARE, MEDICAID ==
[2023-10-24] MEDS: Diatrizoate Meglumine/Diatrizoate Sodium 37% 120 ML Bottle PO ONE (00:19)
[2023-10-24 01:28] VITALS: BP 149/104; PULSE 88
== END 2023-10-24 01:27 ==
LOC: JD.ED 22:17
DX: K94.23 Gastrostomy malfunction (principal); I10 Essential (primary) hypertension; E78.00 Pure hypercholesterolemia, unspecified; K21.9 Gastro-esophageal reflux disease without esophagitis; Z91.048 Other nonmedicinal substance allergy status; Z88.6 Allergy status to analgesic agent; Z79.82 Long term (current) use of aspirin; Z79.51 Long term (current) use of inhaled steroids; Z79.899 Other long term (current) drug therapy; Z86.16 Personal history of COVID-19
CPT/HCPCS: 43762; 74018; 99284; Q9963

== ENCOUNTER 2024-01-18 14:29 | Inpatient (IN) | payer MEDICARE, MEDICAID ==
[2024-01-18 16:28] LABS: BASOPHILS PERCENT AUTO 0.2 % (0.0-1.0); EOSINOPHILS ABSOLUTE AUTO 0.1 K/mm3 (0.0-0.4); EOSINOPHILS PERCENT AUTO 1.4 % (0.0-6.0); HEMATOCRIT 32.7 % (42.0-52.0); IMMATURE GRAN ABSOLUTE AUTO 0.03 K/mm3 (0.00-0.05); IMMATURE GRAN PERCENT AUTO 0.3 % (0.0-0.4); LYMPHOCYTES ABSOLUTE AUTO 1.1 K/mm3 (1.0-4.8); LYMPHOCYTES PERCENT AUTO 12.4 % (24.0-44.0); MEAN CORPUSCULAR HEMOGLOBIN 25.1 pg (28.0-32.0); MEAN CORPUSCULAR HGB CONC 30.6 g/dl (32.0-36.0); MEAN CORPUSCULAR VOLUME 82.2 fl (83.0-99.0); MEAN PLATELET VOLUME 9.4 fl (9.4-12.4); MONOCYTES ABSOLUTE AUTO 1.1 K/mm3 (0.0-0.8); MONOCYTES PERCENT AUTO 11.7 % (0.0-8.0); NEUTROPHILS ABSOLUTE AUTO 6.8 K/mm3 (1.8-7.7); PLATELET COUNT,PLT 259 K/mm3 (150-400); RED BLOOD CELL COUNT 3.98 M/mm3 (4.52-5.90); WHITE BLOOD CELL COUNT,WBC 9.14 K/mm3 (3.9-11.3)
[2024-01-18 16:41] LABS: INR 1.02; PROTHROMBIN TIME 10.8 SECONDS (9.7-12.0)
[2024-01-18] MEDS: Sodium Chloride 0.9% 10 ML Syringe FLUSH PRN (16:42)
[2024-01-18 16:46] LABS: A/G RATIO 1.1 (1-2); ALBUMIN 3.5 g/dl (3.4-5.0); BILIRUBIN TOTAL 0.3 mg/dL (0.2-1.0); BUN/CREATININE RATIO 26.7 (14-18); CALCIUM 9.1 mg/dL (8.5-10.1); CREATININE 1.2 mg/dL (0.7-1.3); EST CRCL DRUG DOSING (CG) 42.98 mL/min; PROTEIN TOTAL,TP 6.7 g/dl (6.4-8.2)
[2024-01-18] MEDS ORDERED: Naloxone 0.4 MG/ML SDV IVPUSH PRN (19:32)
[2024-01-18] MEDS ORDERED: Enoxaparin 30 MG/0.3 ML Syringe SUBCUT SCH (19:45)
[2024-01-18] MEDS ORDERED: Enoxaparin 40 MG/0.4 ML Syringe SUBCUT SCH (20:45)
[2024-01-18] MEDS ORDERED: Albuterol 0.083% 2.5 MG/3 ML Neb Soln INH PRN (22:17)
[2024-01-18] MEDS ORDERED: LORazepam 0.5 MG Tab PO PRN (22:17)
[2024-01-18] MEDS ORDERED: Ondansetron 4 MG Tab.DIS GTUBE PRN (22:17)
[2024-01-19] MEDS: QUEtiapine 25 MG Tab GTUBE SCH ×2 (00:22→10:17)
[2024-01-19] MEDS: Sodium Chloride 0.9% 1,000 ML IV SCH (00:22)
[2024-01-19] MEDS: Acetaminophen 325 MG Tab PO SCH (00:31)
[2024-01-19 04:51] LABS: BASOPHILS PERCENT AUTO 0.3 % (0.0-1.0); EOSINOPHILS ABSOLUTE AUTO 0.1 K/mm3 (0.0-0.4); EOSINOPHILS PERCENT AUTO 1.1 % (0.0-6.0); HEMATOCRIT 32.9 % (42.0-52.0); HEMOGLOBIN 10.1 gm/dl (14.0-18.0); IMMATURE GRAN ABSOLUTE AUTO 0.03 K/mm3 (0.00-0.05); IMMATURE GRAN PERCENT AUTO 0.3 % (0.0-0.4); LYMPHOCYTES ABSOLUTE AUTO 1.3 K/mm3 (1.0-4.8); LYMPHOCYTES PERCENT AUTO 14.6 % (24.0-44.0); MEAN CORPUSCULAR HEMOGLOBIN 25.1 pg (28.0-32.0); MEAN CORPUSCULAR HGB CONC 30.7 g/dl (32.0-36.0); MEAN CORPUSCULAR VOLUME 81.6 fl (83.0-99.0); MEAN PLATELET VOLUME 9.3 fl (9.4-12.4); MONOCYTES ABSOLUTE AUTO 1.2 K/mm3 (0.0-0.8); MONOCYTES PERCENT AUTO 13.5 % (0.0-8.0); NEUTROPHILS ABSOLUTE AUTO 6.1 K/mm3 (1.8-7.7); NEUTROPHILS PERCENT AUTO 70.2 % (41.0-71.0); PLATELET COUNT,PLT 238 K/mm3 (150-400); RED BLOOD CELL COUNT 4.03 M/mm3 (4.52-5.90); WHITE BLOOD CELL COUNT,WBC 8.72 K/mm3 (3.9-11.3)
[2024-01-19 05:21] LABS: A/G RATIO 1.1 (1-2); ALBUMIN 3.5 g/dl (3.4-5.0); BILIRUBIN TOTAL 0.3 mg/dL (0.2-1.0); CALCIUM 9.1 mg/dL (8.5-10.1); EST CRCL DRUG DOSING (CG) 51.57 mL/min; PROTEIN TOTAL,TP 6.7 g/dl (6.4-8.2)
[2024-01-19] MEDS: Acetaminophen Soln 650 MG/20.3 ML UD Cup GTUBE SCH (10:15)
[2024-01-19] MEDS: Omeprazole 20 MG Cap.CR GTUBE SCH (10:16)
[2024-01-19] MEDS: Doxazosin 4 MG Tab GTUBE SCH (10:17)
[2024-01-19] MEDS: atorvaSTATin 40 MG Tab GTUBE SCH (10:17)
[2024-01-19] MEDS: Citalopram 20 MG Tab GTUBE SCH (10:18)
[2024-01-19] MEDS: LORazepam 0.5 MG Tab GTUBE PRN (10:18)
[2024-01-19] MEDS: Famotidine 20 MG/2 ML SDV IVPUSH SCH (10:50)
[2024-01-19] MEDS: Melatonin 3 MG Tab GTUBE SCH (21:42)
[2024-01-20 04:54] LABS: BASOPHILS PERCENT AUTO 0.4 % (0.0-1.0); EOSINOPHILS ABSOLUTE AUTO 0.2 K/mm3 (0.0-0.4); EOSINOPHILS PERCENT AUTO 2.9 % (0.0-6.0); HEMATOCRIT 30.6 % (42.0-52.0); HEMOGLOBIN 9.1 gm/dl (14.0-18.0); IMMATURE GRAN ABSOLUTE AUTO 0.01 K/mm3 (0.00-0.05); IMMATURE GRAN PERCENT AUTO 0.1 % (0.0-0.4); LYMPHOCYTES ABSOLUTE AUTO 0.9 K/mm3 (1.0-4.8); LYMPHOCYTES PERCENT AUTO 11.1 % (24.0-44.0); MEAN CORPUSCULAR HEMOGLOBIN 24.5 pg (28.0-32.0); MEAN CORPUSCULAR HGB CONC 29.7 g/dl (32.0-36.0); MEAN CORPUSCULAR VOLUME 82.3 fl (83.0-99.0); MEAN PLATELET VOLUME 9.2 fl (9.4-12.4); MONOCYTES ABSOLUTE AUTO 1.1 K/mm3 (0.0-0.8); NEUTROPHILS ABSOLUTE AUTO 5.7 K/mm3 (1.8-7.7); NEUTROPHILS PERCENT AUTO 71.5 % (41.0-71.0); PLATELET COUNT,PLT 236 K/mm3 (150-400); RED BLOOD CELL COUNT 3.72 M/mm3 (4.52-5.90)
[2024-01-20 05:24] LABS: A/G RATIO 0.9 (1-2); ALBUMIN 2.8 g/dl (3.4-5.0); ANION GAP 13.3 (5-15); BILIRUBIN TOTAL 0.3 mg/dL (0.2-1.0); CALCIUM 8.6 mg/dL (8.5-10.1); EST CRCL DRUG DOSING (CG) 51.57 mL/min; POTASSIUM,K 4.3 mEq/L (3.5-5.1)
[2024-01-20] MEDS ORDERED: fentaNYL 100 MCG/2 ML SDV ONE (10:13)
[2024-01-20] MEDS ORDERED: Midazolam 1 MG/ML 2 ML SDV ONE (10:14)
[2024-01-20] MEDS ORDERED: Propofol 200 MG/20 ML SDV ONE (10:14)
[2024-01-20] MEDS ORDERED: Lidocaine 2% 5 ML SDV ONE (10:15)
[2024-01-20] MEDS ORDERED: Sodium Chloride 0.9% 1,000 ML IV ONE (11:00)
[2024-01-20] MEDS ORDERED: Sodium Chloride 0.9% 10 ML Syringe FLUSH PRN (11:03)
[2024-01-20] MEDS ORDERED: ePHEDrine 50 MG/ML SDV ONE (11:09)
[2024-01-20] MEDS ORDERED: Lactated Ringers 1,000 ML IV SCH (11:15)
[2024-01-20] MEDS ORDERED: Phenylephrine 1% 10 MG/ML SDV ONE (12:00)
[2024-01-20] MEDS ORDERED: ceFAZolin 2 GM Vial ONE (12:00)
[2024-01-20] MEDS: Morphine 8 MG, EPINEPHrine 0.3 MG, Cefuroxime 750 MG, Ketorolac 30 MG, Sodium Chloride ... PRN (12:33)
[2024-01-20] MEDS: Tranexamic Acid 1,000 MG/10 ML Vial ONE (12:33)
[2024-01-20] MEDS: Vancomycin 1 GM SDV ONE (12:33)
[2024-01-20] MEDS ORDERED: fentaNYL 100 MCG/2 ML SDV IVPUSH PRN (13:13)
[2024-01-20] MEDS: Morphine 2 MG/ML SYRINGE IVPUSH PRN (14:49)
[2024-01-20] MEDS: Sodium Chloride 0.9% 10 ML Syringe FLUSH SCH (21:39)
[2024-01-21 10:02] LABS: BASOPHILS PERCENT AUTO 0.3 % (0.0-1.0); EOSINOPHILS PERCENT AUTO 0.2 % (0.0-6.0); HEMOGLOBIN 9.1 gm/dl (14.0-18.0); IMMATURE GRAN ABSOLUTE AUTO 0.03 K/mm3 (0.00-0.05); IMMATURE GRAN PERCENT AUTO 0.3 % (0.0-0.4); LYMPHOCYTES ABSOLUTE AUTO 0.9 K/mm3 (1.0-4.8); LYMPHOCYTES PERCENT AUTO 8.7 % (24.0-44.0); MEAN CORPUSCULAR HEMOGLOBIN 25.3 pg (28.0-32.0); MEAN CORPUSCULAR HGB CONC 30.3 g/dl (32.0-36.0); MEAN CORPUSCULAR VOLUME 83.6 fl (83.0-99.0); MEAN PLATELET VOLUME 9.6 fl (9.4-12.4); MONOCYTES ABSOLUTE AUTO 1.1 K/mm3 (0.0-0.8); MONOCYTES PERCENT AUTO 10.3 % (0.0-8.0); NEUTROPHILS ABSOLUTE AUTO 8.4 K/mm3 (1.8-7.7); NEUTROPHILS PERCENT AUTO 80.2 % (41.0-71.0); PLATELET COUNT,PLT 254 K/mm3 (150-400); RED BLOOD CELL COUNT 3.59 M/mm3 (4.52-5.90); WHITE BLOOD CELL COUNT,WBC 10.51 K/mm3 (3.9-11.3)
[2024-01-21 12:22] VITALS: BP 119/98; PULSE 103
[2024-01-21] MEDS: Acetaminophen/HYDROcodone 325-5 MG Tab GTUBE ONE (13:37)
== END 2024-01-21 16:18 | disposition home or self-care (01) | DRG 521 ==
LOC: JD.ED 14:29 → JD.MS 19:30
PROVIDERS: ADMIT Family Medicine; ATTEND Family Medicine
PROC: 0SRB0JZ Replacement of Left Hip Joint with Synthetic Substitute, Open Approach (ICD-10-PCS; principal; 2024-01-20 11:00)
DX: T84.115A Breakdown (mechanical) of internal fixation device of left femur, initial encounter (principal); S72.002A Fracture of unspecified part of neck of left femur, initial encounter for closed fracture; J18.9 Pneumonia, unspecified organism; F84.0 Autistic disorder; C15.9 Malignant neoplasm of esophagus, unspecified; H54.7 Unspecified visual loss; E78.00 Pure hypercholesterolemia, unspecified; I10 Essential (primary) hypertension; K59.09 Other constipation; K52.9 Noninfective gastroenteritis and colitis, unspecified; K21.9 Gastro-esophageal reflux disease without esophagitis; M19.90 Unspecified osteoarthritis, unspecified site; G80.9 Cerebral palsy, unspecified; D50.9 Iron deficiency anemia, unspecified; F41.9 Anxiety disorder, unspecified; F79 Unspecified intellectual disabilities; W19.XXXA Unspecified fall, initial encounter; Z88.8 Allergy status to other drugs, medicaments and biological substances; Z91.048 Other nonmedicinal substance allergy status; Z79.82 Long term (current) use of aspirin; Z79.51 Long term (current) use of inhaled steroids; Z79.899 Other long term (current) drug therapy; Z79.2 Long term (current) use of antibiotics; Z87.01 Personal history of pneumonia (recurrent); Z86.16 Personal history of COVID-19; Z93.1 Gastrostomy status
CPT/HCPCS: 36415; 71045; 80053; 85025; 85610; 86850; 86900; 86901; 93005; 99284; J3490; 01230; 73501-26-LT; 73501-LT; 85027; 87641; 93010; 94667; 94668; 94760; 96523; 97110-GP; 97161-GP; 97530-GP; 99222; 99232; 99238; A9270-GY; C1776; J0171; J0690; J0697; J1885; J2250; J2270; J2371; J2704; J3010; J3370; J7030

== ENCOUNTER 2024-05-21 09:30 | Emergency (ER) | payer MEDICARE, MEDICAID ==
[2024-05-21 21:55] VITALS: BP 116/69; PULSE 68
== END 2024-05-21 13:06 | disposition home or self-care (01) ==
LOC: JD.ED 09:30
DX: K94.23 Gastrostomy malfunction (principal); I10 Essential (primary) hypertension; E78.00 Pure hypercholesterolemia, unspecified; K21.9 Gastro-esophageal reflux disease without esophagitis; Z86.16 Personal history of COVID-19; Z88.8 Allergy status to other drugs, medicaments and biological substances; Z91.048 Other nonmedicinal substance allergy status; Z79.82 Long term (current) use of aspirin; Z79.51 Long term (current) use of inhaled steroids; Z79.899 Other long term (current) drug therapy
CPT/HCPCS: 43762; 99282; B4087

== ENCOUNTER → 2024-05-25 | Day surgery (SDC) | payer MEDICARE, MEDICAID ==
[~2024-05-25] MED LIST changes: +Lactated Ringers 1,000 ML IV SCH; -Lidocaine 1% PF 2 ML SDV INJECT SCH; +Ondansetron 4 MG/2 ML SDV IVPUSH PRN; +Propofol 200 MG/20 ML SDV ONE
[2024-05-25 17:53] VITALS: BP 115/86; PULSE 71
== END | disposition home or self-care (01) ==
LOC: JD.SDS 16:38
PROVIDERS: ATTEND Surgery
DX: Z43.1 Encounter for attention to gastrostomy (principal); K44.9 Diaphragmatic hernia without obstruction or gangrene; E11.9 Type 2 diabetes mellitus without complications; E78.00 Pure hypercholesterolemia, unspecified; K21.9 Gastro-esophageal reflux disease without esophagitis; F32.A Depression, unspecified; F41.9 Anxiety disorder, unspecified; Z79.899 Other long term (current) drug therapy; Z91.048 Other nonmedicinal substance allergy status; Z88.8 Allergy status to other drugs, medicaments and biological substances
CPT/HCPCS: 00731; J2704

== ENCOUNTER 2024-10-03 17:04 | Emergency (ER) | payer MEDICARE, MEDICAID ==
[2024-10-03 18:26] VITALS: BP 113/74; PULSE 88
[2024-10-03 19:58] LABS: BASOPHILS PERCENT AUTO 0.6 % (0.0-1.0); EOSINOPHILS ABSOLUTE AUTO 0.6 K/mm3 (0.0-0.4); EOSINOPHILS PERCENT AUTO 10.1 % (0.0-6.0); HEMATOCRIT 36.3 % (42.0-52.0); HEMOGLOBIN 11.6 gm/dl (14.0-18.0); IMMATURE GRAN ABSOLUTE AUTO 0.02 K/mm3 (0.00-0.05); IMMATURE GRAN PERCENT AUTO 0.3 % (0.0-0.4); LYMPHOCYTES ABSOLUTE AUTO 1.4 K/mm3 (1.0-4.8); LYMPHOCYTES PERCENT AUTO 21.7 % (24.0-44.0); MEAN CORPUSCULAR HEMOGLOBIN 26.9 pg (28.0-32.0); MEAN CORPUSCULAR VOLUME 84.2 fl (83.0-99.0); MEAN PLATELET VOLUME 9.4 fl (9.4-12.4); MONOCYTES ABSOLUTE AUTO 0.7 K/mm3 (0.0-0.8); MONOCYTES PERCENT AUTO 11.8 % (0.0-8.0); NEUTROPHILS ABSOLUTE AUTO 3.5 K/mm3 (1.8-7.7); NEUTROPHILS PERCENT AUTO 55.5 % (41.0-71.0); PLATELET COUNT,PLT 174 K/mm3 (150-400); RED BLOOD CELL COUNT 4.31 M/mm3 (4.52-5.90); WHITE BLOOD CELL COUNT,WBC 6.26 K/mm3 (3.9-11.3)
[2024-10-03] MEDS: Divalproex Sodium Delayed-Release 500 MG Tab.CR PO ONE (20:23)
[2024-10-03] MEDS: LORazepam 1 MG Tab PO ONE (20:24)
[2024-10-03] MEDS: risperiDONE 1 MG Tab PO SCH (20:24)
[2024-10-03] MEDS: QUEtiapine 25 MG Tab PO ONE ×2 (20:25→21:04)
[2024-10-03 21:40] LABS: ALBUMIN 3.1 g/dl (3.4-5.0); ANION GAP 12.7 (5-15); BILIRUBIN TOTAL 0.3 mg/dL (0.2-1.0); BUN/CREATININE RATIO 26.9 (14-18); CALCIUM 8.8 mg/dL (8.5-10.1); CREATININE 1.3 mg/dL (0.7-1.3); EST CRCL DRUG DOSING (CG) 49.76 mL/min; POTASSIUM,K 4.7 mEq/L (3.5-5.1); PROTEIN TOTAL,TP 6.3 g/dl (6.4-8.2); TSH 0.385 uIU/mL (0.358-3.74)
== END 2024-10-04 01:52 | disposition home or self-care (01) ==
LOC: JD.ED 17:04
DX: R46.89 Other symptoms and signs involving appearance and behavior (principal); I10 Essential (primary) hypertension; E78.00 Pure hypercholesterolemia, unspecified; Z86.16 Personal history of COVID-19; Z91.048 Other nonmedicinal substance allergy status; Z88.8 Allergy status to other drugs, medicaments and biological substances; Z79.82 Long term (current) use of aspirin; Z79.899 Other long term (current) drug therapy; Z86.59 Personal history of other mental and behavioral disorders; Z79.51 Long term (current) use of inhaled steroids
CPT/HCPCS: 36415; 80053; 80143; 80179; 80307; 84443; 85025; 99284; A9270; 99283